=== PATIENT | male | born 1985 | race Caucasian/White ===

== ENCOUNTER 2022-04-19 08:00 | Outpatient (CLI) | payer OTHER ==
[2022-04-19 18:25] LABS: BASOPHILS % (AUTO) 0.4 %; EOSINOPHILS % (AUTO) 0.4 %; HCT - HEMATOCRIT 44.7 % (42.0-52.0); HGB - HEMOGLOBIN 14.9 g/dL (14.0-18.0); LYMPHOCYTES # (AUTO) 1.3 10^3/uL (1.5-3.5); LYMPHOCYTES % (AUTO) 27.6 %; MEAN CORPUSCULAR HGB CONC 33.3 g/dL (32.0-36.0); MEAN PLATELET VOLUME 10.6 fL (7.4-11.4); MONOCYTES # (AUTO) 0.3 10^3/uL (0.0-1.0); MONOCYTES % (AUTO) 5.7 %; NEUTROPHILS % (AUTO) 65.5 %; PLT - PLATELET COUNT 248 10^3/uL (130-450); RED BLOOD COUNT 5.14 10^6/uL (4.70-6.10); WHITE BLOOD COUNT 4.6 x10^3/uL (4.8-10.8)
[2022-04-19 18:53] LABS: ALBUMIN 4.6 g/dL (3.2-5.5); ALBUMIN/GLOBULIN RATIO 1.7 (1.0-2.2); ALKALINE PHOSPHATASE 61 IU/L (42-121); ALT ALANINE AMINOTRANSFERASE 28 IU/L (10-60); AST ASPARTATE AMINOTRANSFERASE 16 IU/L (10-42); BILIRUBIN,TOTAL 0.5 mg/dL (0.2-1.0); BUN - BLOOD UREA NITROGEN 11 mg/dL (6-20); CALCIUM 9.6 mg/dL (8.5-10.3); CARBON DIOXIDE - CO2 31 mmol/L (21-32); CHLORIDE 102 mmol/L (101-111); CREATININE 0.8 mg/dL (0.6-1.2); GFR - MDRD 110 (>89); GLUCOSE 99 mg/dL (70-100); POTASSIUM 4.4 mmol/L (3.5-5.0); SODIUM 140 mmol/L (135-145); TOTAL PROTEIN 7.3 g/dL (6.7-8.2)
[2022-04-19 19:05] LABS: CRP - C-REACTIVE PROTEIN < 1.0 mg/dL (0-1.0)
== END 2022-04-19 23:59 | disposition home or self-care (01) ==
LOC: LAB.N 08:00
PROVIDERS: ATTEND Physician Assistant
DX: M54.6 Pain in thoracic spine (principal)
CPT/HCPCS: 36415; 80053; 85025; 85651; 86140

== ENCOUNTER 2023-02-17 17:36 | Outpatient (CLI) | payer OTHER ==
--- NOTE | 2023-02-17 18:08 | XRAY Report ---
PROCEDURE: Foot 3 View RT INDICATIONS: SPRAIN OF RIGHT FOOT TECHNIQUE: 3 views of the foot were acquired. COMPARISON: None. FINDINGS: Bones: No fractures or dislocations. No suspicious bony lesions. Soft tissues: No suspicious soft tissue calcifications or masses. IMPRESSION: No acute bony abnormality. If pain persists with conservative management, consider repeat radiographs in 10-14 days or cross-sectional imaging. Reviewed by: Coopre Queen MD on 02/17/2023 6:06 PM PDT Approved by: Cooper Queen MD on 02/17/2023 6:06 PM PDT Station ID: [id number]
== END 2023-02-17 23:59 | disposition home or self-care (01) ==
LOC: DI.S 17:36
PROVIDERS: ATTEND Physician Assistant Medical
DX: S93.691A Other sprain of right foot, initial encounter (principal)

== ENCOUNTER 2023-02-28 08:00 | Outpatient (CLI) | payer OTHER ==
--- NOTE | 2023-02-28 08:20 | XRAY Report ---
PROCEDURE: Foot 3 View RT INDICATIONS: RIGHT FOOT FRACTURE TECHNIQUE: 3 views of the foot were acquired. COMPARISON: Radiograph 02/17/2023 FINDINGS: Bones: Questionable fracture through the distal navicular bone, at the articulation of the medial cu neiforms Soft tissues: No suspicious soft tissue calcifications or masses. IMPRESSION: Partial fracture through the distal navicular bone. Consider confirmation with CT. Reviewed by: Jeffy Gamez on 02/28/2023 8:19 AM [facility] Approved by: Jeffy Gamez on 02/28/2023 8:19 AM PST Station ID: [id number]
== END 2023-02-28 23:59 | disposition home or self-care (01) ==
LOC: DI.S 08:00
PROVIDERS: ATTEND Physician Assistant Medical
DX: S92.251A Displaced fracture of navicular [scaphoid] of right foot, initial encounter for closed fracture (principal)

== ENCOUNTER 2023-03-17 07:45 | Outpatient (CLI) | payer OTHER ==
--- NOTE | 2023-03-17 12:16 | XRAY Report ---
PROCEDURE: Foot 3 View RT INDICATIONS: RIGHT FOOT PAIN TECHNIQUE: 3 views of the foot were acquired. COMPARISON: 02/28/2023 and 02/17/2023 FINDINGS: Bones: Previously described radiolucency over dorsal aspect of distal navicular bone appears to invo lve both distal navicular bone and adjacent middle cuneiform and may represent a nutrient vessel or a rtifact. No periosteal reaction or increased sclerosis is seen. No suspicious bony lesions. Soft tissues: No suspicious soft tissue calcifications or masses. IMPRESSION: No definite acute fracture or dislocation. Radiolucency over dorsal aspect of navicular bone and medi al cuneiform which may represent artifacts or nutrient vessel. A nondisplaced fracture cannot be enti rely excluded. Consider CT or MRI for further evaluation if clinically indicated. Reviewed by: Ry Mckeon MD on 03/17/2023 12:15 PM PST Approved by: Ry Mckeon MD on 03/17/2023 12:15 PM PST Station ID: [id number]
== END 2023-03-17 23:59 | disposition home or self-care (01) ==
LOC: DI.WOS 07:45
PROVIDERS: ATTEND Physician Assistant Surgical
DX: S92.811A Other fracture of right foot, initial encounter for closed fracture (principal)

== ENCOUNTER 2023-04-10 08:48 | Outpatient (CLI) | payer OTHER ==
--- NOTE | 2023-04-10 18:59 | XRAY Report ---
PROCEDURE: Foot 3 View RT INDICATIONS: RIGHT FOOT FRACTURE TECHNIQUE: 3 views of the foot were acquired. COMPARISON: None. FINDINGS: Bones: Suspect probable small nondisplaced base of first cuneiform fracture. No other fractures or d islocations. Suspicious bony lesions. Soft tissues: No suspicious soft tissue calcifications or masses. IMPRESSION: Suspect probable small nondisplaced base of first cuneiform fracture. Reviewed by: Howard Davis MD on 04/10/2023 6:57 PM PST Approved by: Howard Davis MD on 04/10/2023 6:57 PM PST Station ID: [id number]
== END 2023-04-10 23:59 | disposition home or self-care (01) ==
LOC: DI.WOS 08:48
PROVIDERS: ATTEND Physician Assistant Surgical
DX: S92.254A Nondisplaced fracture of navicular [scaphoid] of right foot, initial encounter for closed fracture (principal)